=== PATIENT | male | born 1975 | race Two or more races ===

== ENCOUNTER 2021-10-13 17:14 | Inpatient (IN) | payer MEDICAID ==
[~2021-10-13] VITALS: Ht 175.3 cm; Wt 81.6 kg
--- NOTE | 2021-10-13 17:14 | NUR ---
BIBRA [address] C/O CHEST PAIN SHARP AND PRESSURE LIKE RADIATES TO L ARM X 2 WEEK. 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 BG 94. PT STATES HIS PAIN IS 8/10 ON PAIN SCALE AND THAT HE IS WITHDRAWING FROM VOD[place], LAST DRINK WAS AN HOUR AGO. P TATTCHED TO MONITOR, SINUS TACH, AWARE. WARM BLNAKET PROVIDED FOR COMFORT. AWAITING MD AWAD.
[2021-10-13] MEDS ORDERED: NITROGLYCERIN 0.4 MG/TAB BOTTLE SL ONE (17:30)
[2021-10-13] MEDS ORDERED: ASPIRIN 325 MG TABLET PO ONE (17:30)
[2021-10-13] MEDS ORDERED: ASPIRIN 325 MG TABLET ONE (17:40)
[2021-10-13] MEDS ORDERED: NITROGLYCERIN 0.4 MG/TAB BOTTLE ONE (17:40)
[2021-10-13 17:47] LABS: BASOPHILS % (AUTO) 0.4 % (0.0-2.0); EOSINOPHILS % (AUTO) 0.2 % (0.0-6.0); HEMATOCRIT 38 % (39-51); HEMOGLOBIN 12.6 g/dL (13.5-17.5); LYMPHOCYTES # (AUTO) 0.6 K/uL (0.8-4.8); LYMPHOCYTES % (AUTO) 13.8 % (20.0-44.0); MEAN CORPUSCULAR HGB CONC 33 g/dl (31.0-36.0); MEAN CORPUSCULAR VOLUME 88 fL (80-96); MONOCYTES # (AUTO) 0.7 K/uL (0.1-1.30); MONOCYTES % (AUTO) 17.3 % (2.0-12.0); NEUTROPHILS # (AUTO) 2.8 K/uL (1.8-8.9); NEUTROPHILS % (AUTO) 68.3 % (43.0-81.0); PLATELET COUNT (AUTO) 162 K/uL (150-450); RED BLOOD CELL COUNT(AUTO) 4.31 MIL/uL (4.5-6.0); WHITE BLOOD COUNT (AUTO) 4.1 K/uL (4.3-11.0)
[2021-10-13] MEDS ORDERED: LORAZEPAM INJ 2 MG/ML VIAL IV ONE (18:00)
[2021-10-13 18:01] LABS: CALCIUM, SERUM 9.7 mg/dL (8.5-10.1); CARBON DIOXIDE 31 mmol/L (21-32); CHLORIDE 87 mmol/L (98-107); CREATININE 0.9 mg/dL (0.6-1.3); GLUCOSE 79 mg/dL (74-106); POTASSIUM 3.2 mmol/L (3.5-5.1); SODIUM SERUM 134 mmol/L (136-145); UREA NITROGEN, BLOOD 15 mg/dL (7-18)
[2021-10-13] MEDS ORDERED: LORAZEPAM INJ 2 MG/ML VIAL ONE (18:03)
--- NOTE | 2021-10-13 18:04 | NUR ---
SPOKE WITH DAUGHTER HILLARY [phone]
[2021-10-13 18:51] LABS: ALBUMIN 3.8 g/dL (3.4-5.0); BILIRUBIN,DIRECT 0.3 mg/dL (0.0-0.2); BILIRUBIN,TOTAL 0.7 mg/dL (0.2-1.0); TOTAL PROTEIN, SERUM 7.5 g/dL (6.4-8.2)
--- NOTE | 2021-10-13 19:25 | NUR ---
EVELYN COLLECTED AND SENT
--- NOTE | 2021-10-13 19:35 | NUR ---
MOVE SHEET SUBMITTED.
--- NOTE | 2021-10-13 20:14 | NUR ---
CALLED TO FOLLLOW UP ON TROPONIN RESULT. STILL IN PROGRESS.
--- NOTE | 2021-10-13 20:30 | NUR ---
REPORT GIVEN TO CASEY Reyes RN FOR JEAN CARLOS.
--- NOTE | 2021-10-13 21:20 | NUR ---
DR. FUENTES SPEAKING TO NARINDER SALESPERSON WIGS HOSPITALIST REGARDING ADMISSION
--- NOTE | 2021-10-13 21:37 | NUR ---
PT TRANSFERRED TO 3W VIA ACLS PROTOCOL. VSS. ALL BELONGINGS WITH PT. PT TOLERATED TRANSFER WELL.
--- NOTE | 2021-10-13 21:39 | NUR ---
RN NOTES PT ARRIVED TO UNIT VIA GURNEY. PT ASLEEP BUT EASILY WOKEN UP. PT ABLE TO MAKE NEEDS KNOWN. NOTED WITH RFA IV ACCESS 20G S/L PT WEARING PANTS REFUSES TO TAKE THEM OFF AT THIS ITME NOT ABLE TO DO A COMPLETE SKIN ASSESSMENT WILL TRY AGAIN LATER. PT ORIENTED TO UNIT AND ROOM. CALL LIGHT WITHIN REACH. TABLE WITHIN REACH. AWAITING ADMITTING ORDERS. WILL CONTINUE TO MONITOR.
[2021-10-13] MEDS ORDERED: IV NS 0.9% 500 ML IV ONE (22:00)
[2021-10-13] MEDS ORDERED: MORPHINE SULFATE INJ 2 MG/ML DISP.SYRIN IV PRN (22:00)
[2021-10-13] MEDS ORDERED: IV D5/ 0.9% NACL 1,000 ML IV PRN (22:00)
[2021-10-13] MEDS ORDERED: ONDANSETRON HCL/PF 4 MG/2 ML VIAL IVP PRN (22:00)
[2021-10-13 22:02] LABS: BAND % (MANUAL) 2 % (0.0-5.0); LYMPHOCYTES % (MANUAL) 12 % (16-48); MONOCYTES % (MANUAL) 12 % (0-11.0); NEUTROPHILS % (MANUAL) 74 (42-76)
[2021-10-13 23:00] VITALS: BP 101/53
[2021-10-13] MEDS: PANTOPRAZOLE 40 MG VIAL IV SCH (23:00)
[2021-10-14 06:13] LABS: BASOPHILS % (AUTO) 0.9 % (0.0-2.0); EOSINOPHILS % (AUTO) 1.2 % (0.0-6.0); HEMATOCRIT 34 % (39-51); HEMOGLOBIN 11.2 g/dL (13.5-17.5); LYMPHOCYTES # (AUTO) 0.7 K/uL (0.8-4.8); LYMPHOCYTES % (AUTO) 19.7 % (20.0-44.0); MEAN CORPUSCULAR HGB CONC 33 g/dl (31.0-36.0); MEAN CORPUSCULAR VOLUME 89 fL (80-96); MONOCYTES # (AUTO) 0.4 K/uL (0.1-1.30); MONOCYTES % (AUTO) 12.4 % (2.0-12.0); NEUTROPHILS # (AUTO) 2.3 K/uL (1.8-8.9); NEUTROPHILS % (AUTO) 65.8 % (43.0-81.0); PLATELET COUNT (AUTO) 131 K/uL (150-450); RED BLOOD CELL COUNT(AUTO) 3.81 MIL/uL (4.5-6.0); WHITE BLOOD COUNT (AUTO) 3.5 K/uL (4.3-11.0)
--- NOTE | 2021-10-14 06:47 | NUR ---
RN CLOSING NOTES PT ASLEEP BUT EASILY WOKEN UP. PT ABLE TO MAKE NEEDS KNOWN. NOTED WITH RFA IV ACCESS 20G S/L PT WEARING PANTS REFUSES TO TAKE THEM OFF AT THIS TIME NOT ABLE TO DO A COMPLETE SKIN ASSESSMENT WILL ENDORSE TO DAY SHIFT. CALL LIGHT WITHIN REACH. TABLE WITHIN REACH. WILL ENDORSE CARE.
[2021-10-14 07:29] LABS: CALCIUM, SERUM 8.7 mg/dL (8.5-10.1); CREATININE 0.9 mg/dL (0.6-1.3); MAGNESIUM 1.3 mg/dL (1.8-2.4); PHOSPHORUS 3.5 mg/dL (2.5-4.9); POTASSIUM 2.9 mmol/L (3.5-5.1)
--- NOTE | 2021-10-14 07:30 | NUR ---
PT RECEIVED RESTING COMFORTABLY IN BED. NO S/S OR C/O PAIN OR DISTRESS NOTED. SIDE RAILS UP X2, CALL LIGHT LEFT WITHIN REACH. WILL CONTINUE PLAN OF CARE.
[2021-10-14 08:00] VITALS: BP 128/86
[2021-10-14] MEDS: PANTOPRAZOLE 40 MG VIAL IV SCH (09:28)
[2021-10-14] MEDS: IV LR 1000 ML 1,000 ML IV SCH ×3 (09:28→19:26)
[2021-10-14] MEDS: MAGNESIUM OXIDE 400 MG TABLET PO SCH ×3 (09:29→23:56)
[2021-10-14] MEDS: POTASSIUM CHLORIDE 20 MEQ TAB.PRT.SR PO SCH (09:29)
[2021-10-14] MEDS ORDERED: CHLORDIAZEPOXIDE HCL 25 MG CAPSULE PO SCH (09:30)
[2021-10-14 10:00] VITALS: BP 128/86
[2021-10-14] MEDS ORDERED: LORAZEPAM INJ 2 MG/ML VIAL IV PRN (10:00)
[2021-10-14 11:15] LABS: MAGNESIUM 1.3 mg/dL (1.8-2.4); PHOSPHORUS 3.5 mg/dL (2.5-4.9)
[2021-10-14 11:30] LABS: THYROID STIMULATING HORMONE 3.675 uIU/mL (0.358-3.74)
[2021-10-14] MEDS: CHLORDIAZEPOXIDE HCL 25 MG CAPSULE PO SCH ×2 (12:14→17:40)
[2021-10-14 16:53] VITALS: BP 122/94
--- NOTE | 2021-10-14 18:35 | NUR ---
CHANGE OF SHIFT REPORT PT RESTING COMFORTABLY IN BED. NO S/S OR C/O PAIN OR DISTRESS NOTED. SIDE RAILS UP X2, CALL LIGHT LEFT WITHIN REACH. PT KEPT CLEAN, DRY, AND COMFORTABLE. NO SIGNIFICANT CHANGES SINCE PREVIOUS SHIFT. WILL GIVE REPORT TO JANELLE JUNG.
--- NOTE | 2021-10-14 19:40 | NUR ---
MS RN NOTES PT RESTING COMFORTABLY IN BED. NO S/S OR C/O PAIN OR DISTRESS NOTED. SIDE RAILS UP X2, CALL LIGHT LEFT WITHIN REACH. PT KEPT CLEAN, DRY, AND COMFORTABLE. RUNNING LR 2200 ML/HR ON RFA #20G TOLERATING WELL. WILL CONTINUE TO MONITOR.
[2021-10-14 20:00] VITALS: BP 130/87
--- NOTE | 2021-10-14 20:41 | NUR ---
MS RN NOTES PRN ATIVAN GIVEN FOR TREMORS/ ANXIETY TOLERATED WELL, WILL CONTINUE TO MONITOR.
--- NOTE | 2021-10-14 23:00 | NUR ---
MS RN NOTES PT AWAKE ENOUGH TO TAKE P.O MEDS ADMINISTERED TOLERATED WELL. WILL CONTINUE TO MONITOR.
--- NOTE | 2021-10-14 23:23 | NUR ---
MS RN NOTES PT HALF ASLEEP IS MUMBLING WORDS.UNSAFE TO ADMINISTER DUE TO ASPIRATION PRECAUTIONS.
[2021-10-15] MEDS: IV LR 1000 ML 1,000 ML IV SCH ×3 (00:07→10:00)
[2021-10-15 06:33] LABS: EOSINOPHILS % (AUTO) 2.7 % (0.0-6.0); HEMATOCRIT 34 % (39-51); HEMOGLOBIN 11.5 g/dL (13.5-17.5); LYMPHOCYTES # (AUTO) 0.6 K/uL (0.8-4.8); LYMPHOCYTES % (AUTO) 17.4 % (20.0-44.0); MEAN CORPUSCULAR HGB CONC 34 g/dl (31.0-36.0); MEAN CORPUSCULAR VOLUME 88 fL (80-96); MONOCYTES # (AUTO) 0.4 K/uL (0.1-1.30); MONOCYTES % (AUTO) 10.8 % (2.0-12.0); NEUTROPHILS # (AUTO) 2.5 K/uL (1.8-8.9); NEUTROPHILS % (AUTO) 68.1 % (43.0-81.0); PLATELET COUNT (AUTO) 116 K/uL (150-450); WHITE BLOOD COUNT (AUTO) 3.7 K/uL (4.3-11.0)
--- NOTE | 2021-10-15 06:46 | NUR ---
MS FABIANA NOTES PT RESTING COMFORTABLY IN BED. NO S/S OR C/O PAIN OR DISTRESS NOTED. SIDE RAILS UP X2, CALL LIGHT LEFT WITHIN REACH. PT KEPT CLEAN, DRY, AND COMFORTABLE. RUNNING LR @200 ML/HR ON RFA #20G TOLERATING WELL. WILL CONTINUE TO MONITOR. Addendum: 10/15/21 at 0649 by CASEY BOO RN NEW IV SITE LFA 20G
[2021-10-15 07:31] LABS: CALCIUM, SERUM 8.6 mg/dL (8.5-10.1); CREATININE 0.6 mg/dL (0.6-1.3)
--- NOTE | 2021-10-15 07:35 | NUR ---
MS RN OPENING NOTES RECEIVED PATIENT IN BED, ASLEEP. PATIENT ON ROOM AIR; BREATHING EVEN AND UNLABORED, NO SOB NOTED. NO S/S OF PAIN AT THIS TIME. LFA IV ACCESS RUNNING LR @ 200 MLS/HR. SAFETY PRECAUTIONS IN PLACE; BED IN LOW POSITION AND LOCKED, RAILS UP X2, CALL LIGHT WITHIN REACH. WILL CONTINUE TO MONITOR PATIENT.
[2021-10-15 08:00] VITALS: BP 137/85
[2021-10-15 08:05] LABS: MAGNESIUM 1.2 mg/dL (1.8-2.4)
[2021-10-15] MEDS ORDERED: NEUTRA PHOS 1 POWD.PACKET PO SCH (08:30)
[2021-10-15] MEDS: POTASSIUM CHLORIDE 20 MEQ TAB.PRT.SR PO SCH ×4 (08:45→11:46)
[2021-10-15] MEDS: Magnesium 1GM/D5W 100ML PREMIX 100 ML IV SCH ×2 (08:46→09:54)
[2021-10-15] MEDS: CHLORDIAZEPOXIDE HCL 25 MG CAPSULE PO SCH ×2 (08:46→13:08)
[2021-10-15] MEDS ORDERED: PANTOPRAZOLE 40 MG TABLET.DR PO SCH (09:00)
--- NOTE | 2021-10-15 10:13 | NUR ---
MS RN NOTES 10:00 LR IV BAG WILL ADMINISTER LATER. AT THIS TIME PATIENT STILL HAVE LR RUNNING FROM LAST NIGHT
[2021-10-15] MEDS ORDERED: CALC-101 PO (10:44)
[2021-10-15] MEDS ORDERED: OMEP20TA20 PO (10:49)
--- NOTE | 2021-10-15 15:36 | NUR ---
SS consult: SS Consult requested for homelessness and alcohol use. The pt. is a 46-year-old male patient who came into ED due to: chest & abdominal pain. Upon SS consult, the pt. is Alert & Oriented x 4 and makes good eye contact. Pt. denies SI/HI and denies hallucinations. The pt.s thought process and thought content are WNL. The pt. appears slightly unkempt, drowsy with depressed mood & affect. Pt.s speech is clear and pt. remains compliant throughout interview. SW explored pt.s living situation. Patient states he is currently experiencing homelessness. SW explored pt.s mental health Hx. Patient states he has been diagnosed Schizophrenia and is not on any medication. SW provided resources for homelessness and pt. accepted them. SW explored pt.s drug & ETOH use. Pt. states drinks alcohol couple times a week. SW offered for pt. to be referred to alcohol rehab and pt. is refused. SW offered pt. addiction resources and pt. accepted. Per pt. he is ambulatory and independent with all his ADLs. GEOFF explored pt.s support system. Pt. states his daughter, Coleen Miller [phone] is his support system. Pt. signed homeless waiver and it was placed in the chart. SW also provided pt. with clothing and shoes. Plan: Per pt.s request SW called his daughter, Coleen who pt. stated would be providing transportation. Coleen told SW that her mother, Mariana Dumont would be picking up the pt. Pt. is agreeable and stated he is agreeable to skilled nursing placement and wants list of shelters. Pt. was provided with addiction, mental health & homeless resources and pt. accepted them: Year-round shelters: [facility] [address] [place] [address] ; [facility] [address] [place] [address]; [facility] [address] [facility] [address] Hygiene: [facility]: [address] [place] ; [facility] [address] [facility] ; [facility] [address] . Food Resources: [facility]- [address] [place]; Meet Each Need with Dignity ([facility]) [address]; [facility] [address] [facility]; [facility] [address] [facility]. Mental Health resources provided: [facility] [address] [place], [place] [address] ; [facility] [address] [facility] [address], [place], [place] [id number] ; [facility] [address] [place] [address] [place], [place] [phone] ; [facility] [place] [address] [place], [place] [address] Healthcare Clinics: [facility] [address], [address] [place]. [place] ; [facility] [address] [place] [address]; [facility] [address] [facility]. [place] [phone] Counseling--Outpatient [facility] [address], [address] [place], [place] [address] (Specializes in in-depth psychotherapy for emotional distress: anxiety, depression, interpersonal conflicts, life transitions, childhood abuse) [facility] [address] [place] [address] (Assist with solving problem marital difficulties, separation & divorce, aging parents, & grief, chronic & terminal illness) [facility] [address] [place] [address] (Deal with loss & grief, anxiety, marital difficulties) Homebound/Mental Health Services [address] [facility], [address] [place], [place] [address] (Provide in-home mental services to people who are incapable of leaving their homes) [facility] [address] [place] [address] [facility] [address] [place] [address] PSYCHIATRIC OUTPATIENT SERVICES [facility] Partial Hospitalization and Intensive Outpatient Program (Managed Care and [place] Only)[address] [facility] [phone] [facility] Partial Hospitalization and Outpatient [address] [place], [place] [phone] [facility] [place] [address] [place], [place] [phone] [facility] Partial Hospitalization and Outpatient [address] [place], [phone] Substance Abuse resources provided included: [facility] Substance Abuse Self-Helpline (SSM REHAB) ; [facility] [address] [facility]. [place] [address] ; [facility] [address] [facility] [address] ; [facility] [address] [facility] [address] ; [facility] [address] [facility] [phone] ; [facility] Treatment [facility] [address] [facility] [address] ; [facility] [address] [facility] [phone] ; [facility] Substance Abuse Helpline(SAS)-[facility] ; [facility] ; [facility] Tea; [facility] [place]; [facility] [place]; [facility] [address]; [facility]; [facility]; [facility], [facility]. Brian Marino; Alcoholics Anonymous -[facility]; Homero ; Marijuana Anonymous [facility]; Narcotics Anonymous www.na.org;
--- NOTE | 2021-10-15 17:16 | NUR ---
MS REGIONAL TRANSFER LIAISON NOTES PATIENT DISCHARGED HOME, PER PATIENT HIS EX- WILL PICK HIM UP. MANAGER [employer] DISCUSSED WITH PATIENT OPTIONS FOR HOMELESS RESOURCES. ALL DISCHARGE PAPERWORK READY AND PHYSICIAN DISCHARGE INSTRUCTIONS PROVIDED TO PATIENT; PATIENT VERBALIZED UNDERSTANDING AND PAPERS SIGNED. BELONGINGS ACCOUNTED FOR AND FORM SIGNED WELL. IV ACCESS REMOVED BEFORE PATIENT LEFT THE UNIT. PATIENT LEFT ACCOMPANIED BY RN AND EX-. LEFT THE HOSPITAL BY PRIVATE CAR.
[2021-10-16] MEDS ORDERED: CHLORDIAZEPOXIDE HCL 25 MG CAPSULE PO SCH (09:00)
[2021-10-17] MEDS ORDERED: CHLORDIAZEPOXIDE HCL 25 MG CAPSULE PO SCH (09:00)
== END 2021-10-15 16:00 | disposition home or self-care (01) | DRG 282 ==
LOC: ER 17:14 → MED 20:01
PROVIDERS: ADMIT Nurse Practitioner Acute Care; ATTEND Internal Medicine
DX: K85.90 Acute pancreatitis without necrosis or infection, unspecified (principal); D61.818 Other pancytopenia; E87.1 Hypo-osmolality and hyponatremia; E87.6 Hypokalemia; I10 Essential (primary) hypertension; Z87.11 Personal history of peptic ulcer disease; F10.10 Alcohol abuse, uncomplicated; Y90.9 Presence of alcohol in blood, level not specified
CPT/HCPCS: 36415; 71045-TC; 76700-TC; 80048-TC; 80061-TC; 80076-TC; 82728-TC; 83540-TC; 83690-TC; 83735-TC; 83880; 84100-TC; 84439-TC; 84443-TC; 84484-TC; 85025-TC; 86140-TC; 87081-TC; 93307-TC; 97530-TC; C9113; G0378; J2060; J3475; J3490; J7030; J7042; J7050; J7120